=== PATIENT | male | born 2000 | race Caucasian/White ===

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

== ENCOUNTER 2022-12-10 18:08 | Emergency (ER) | payer OTHER, SELFPAY ==
[2022-12-10 18:09] VITALS: BP 131/91; PULSE 98; RESP 20; TEMP 36.5; O2SAT 98; BMI 36.3
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
--- NOTE | 2022-12-10 18:20 | RAD_ITS ---
EXAM: XR LEFT FOREARM, 2 VIEWS CLINICAL INDICATION: injury TECHNIQUE: Frontal and lateral views of the left forearm. This report was created using [employer] report generation technology. COMPARISON: None. FINDINGS: BONES/JOINTS: Comminuted intra-articular distal radius fracture with volar displacement of the distal radial fragments and the carpal bones. SOFT TISSUES: Soft tissue swelling at the wrist. RAD/Forearm 2 Views IMPRESSION: Comminuted intra-articular distal radius fracture with volar displacement of the distal fracture fragments and the carpal bones. Electronically Signed: Navi Duenas MD at 19:07 EDT ,
[2022-12-10] MEDS: Morphine 4 MG/ML Syringe IV (18:33)
[2022-12-10] MEDS: Diphth,Pertuss(Acell),Tet Vac 0.5 ML Vial IM (18:34)
[2022-12-10] MEDS: Ondansetron 4 MG/2 ML Vial IV (18:34)
--- NOTE | 2022-12-10 19:10 | RAD_ITS ---
EXAM: XR LEFT WRIST COMPLETE, 3 OR MORE VIEWS CLINICAL INDICATION: injury TECHNIQUE: Frontal, lateral and oblique views of the left wrist. This report was created using [employer] app report generation technology. COMPARISON: None. FINDINGS: BONES/JOINTS: Comminuted intra-articular distal radius fracture, with volar displacement of the distal fragments and carpal bones. Preservation of the joint space. No sclerotic or destructive changes observed. SOFT TISSUES: Soft tissue swelling. No radiopaque foreign body. RAD/Wrist min 3 Views IMPRESSION: Comminuted intra-articular distal radius fracture, with volar displacement of the distal fragments and carpal bones. Electronically Signed: Navi Duenas MD at 19:43 EDT ,
[2022-12-10 19:50] VITALS: BP 129/63; PULSE 63; RESP 18; TEMP 36.5; O2SAT 98
[2022-12-10 19:59] VITALS: BP 141/76; BP 165/95; BP 169/87; BP 176/92; BP 191/153; PULSE 106; PULSE 108; PULSE 152; PULSE 80; PULSE 89; RESP 18; RESP 22; RESP 26; O2SAT 98; O2SAT 99
--- NOTE | 2022-12-10 20:10 | RAD_ITS ---
EXAM: XR LEFT WRIST, 2 VIEWS CLINICAL INDICATION: reduction TECHNIQUE: Frontal and lateral views of the left wrist. This report was created using [employer] report generation technology. COMPARISON: Left wrist from same date FINDINGS: BONES/JOINTS: Reduction and casting of the previously described distal radius fracture with near-anatomic alignment. Preservation of the joint space. No sclerotic or destructive changes observed. SOFT TISSUES: Soft tissue swelling. No radiopaque foreign body. RAD/Wrist 2 Views IMPRESSION: Reduction and casting of the previously described distal radius fracture with near-anatomic alignment. Electronically Signed: Navi Duenas MD at 20:22 EDT ,
[2022-12-10 20:17] VITALS: BP 166/86; O2SAT 99
[2022-12-10 20:22] VITALS: BP 156/89; O2SAT 99
[2022-12-10 20:27] VITALS: BP 158/78; O2SAT 98
[2022-12-10] MEDS: Midazolam 2 MG/2 ML Syringe IV (20:35)
== END 2022-12-10 21:30 | disposition home or self-care (01) ==
PROVIDERS: Emergency Provider Emergency Medicine; PCP Family Medicine; Visit Provider Emergency Medicine
DX: S62.92XA Unspecified fracture of left hand, initial encounter for closed fracture (principal); S60.812A Abrasion of left wrist, initial encounter; S50.311A Abrasion of right elbow, initial encounter; Z23 Encounter for immunization; V00.841A Fall from standing electric scooter, initial encounter
CPT/HCPCS: 25605; 24600; 73090; 73100; 73110; 90471; 90715; 96361; 96374; 96375; 99152; 99285; J7040; A4216; J2405